=== PATIENT | male | born 1960 | race Caucasian/White ===

== ENCOUNTER 2020-01-09 23:50 | Observation (INO) | payer MEDICAID ==
[~2020-01-09] VITALS: Ht 190.5 cm; Wt 81.4 kg
--- NOTE | 2020-01-09 23:56 | NUR ---
Pt is a transfer from [facility] for a non stemi. Pt reports he has been SOB for a few weeks with no relief. Pt reports that he did not have chest pain but felt it was difficult to perform more tasks. Pt on arrival is in good spirits and ambulating independantly. Pt reports that is AICD is being monitored at this time closely. Pt connected to monitors. Call light in reach. Pt is no on blood thinners at this time. Pt in room, fall preacautions in place. Pt was not transfered on any anticoagulants. Pt did not recieve aspirin. Will be given meds here. .048 troponin.
[2020-01-09] MEDS ORDERED: ASPIRIN 81 MG TABLET CHEW ONE (23:59)
--- NOTE | 2020-01-10 00:27 | NUR ---
PT PROVIDED WITH DINNER WITH ELEONORA MALIN. PT LAYING IN BED, MARIO.
[2020-01-10 00:40] LABS: BASOPHILS % (AUTO) 1 % (0-1); EOSINOPHILS % (AUTO) 3 % (1-7); LYMPHOCYTES % (AUTO) 9 % (22-44); MEAN CORPUSCULAR HEMOGLOBIN 30.3 pg (27.5-34.5); MEAN CORPUSCULAR HGB CONC 32.7 g/dL (33.2-36.2); MEAN PLATELET VOLUME 9.2 fL (7.4-10.4); MONOCYTES % (AUTO) 7 % (2-9); NEUTROPHILS % (AUTO) 81 % (42-75); PLATELET COUNT 272 x10^3/uL (130-400); RED BLOOD COUNT 4.09 x10^6/uL (4.38-5.82); RED CELL DISTRIBUTION WIDTH 17.5 % (9.4-14.8)
[2020-01-10 00:45] LABS: MD NO
[2020-01-10 00:46] LABS: ALBUMIN 3.2 g/dL (3.4-5.0); ANION GAP 8 mmol/L (5-15); CALCIUM 8.6 mg/dL (8.5-10.1); CHLORIDE 107 mmol/L (98-107)
[2020-01-10 00:52] LABS: ALANINE AMINOTRANSFERASE 57 U/L (12-78); ALKALINE PHOSPHATASE 127 U/L (45-117); BILIRUBIN,TOTAL 1.6 mg/dL (0.2-1.0); CREATININE 1.56 mg/dL (0.7-1.3); TOTAL PROTEIN 6.8 g/dL (6.4-8.2); TROPONIN I 0.043 ng/mL (0.000-0.045)
[2020-01-10 01:00] LABS: INTERNATIONAL NORMALIZED RATIO 1.11 (0.93-1.1); PROTHROMBIN TIME 11.4 Seconds (9.6-11.5)
[2020-01-10] MEDS ORDERED: PLEASE ENTER ALLERGIES MC SCH (01:30)
[2020-01-10] MEDS ORDERED: FUROSEMIDE 40 MG/4 ML IV ONE (01:30)
[2020-01-10] MEDS ORDERED: APIX5TAB4 PO (01:54)
[2020-01-10] MEDS ORDERED: BUME1TAB21 PO (01:54)
[2020-01-10] MEDS ORDERED: CARV3.12 PO (01:57)
[2020-01-10] MEDS ORDERED: ASPI-515 PO (01:57)
[2020-01-10] MEDS ORDERED: FAMO40TA61 PO (01:57)
[2020-01-10] MEDS ORDERED: POTA25TA PO (01:57)
--- NOTE | 2020-01-10 02:14 | NUR ---
Report given to ABNER Torre.
[2020-01-10] MEDS ORDERED: FUROSEMIDE 40 MG/4 ML ONE (02:23)
[2020-01-10] MEDS ORDERED: DOCUSATE 100 MG CAPSULE PO PRN (02:30)
[2020-01-10] MEDS ORDERED: NITROGLYCERIN 0.4 MG/SPRAY SL PRN (02:30)
[2020-01-10] MEDS ORDERED: GUAIFENESIN/DM 200-20MG, 10ML UDC PO PRN (02:30)
[2020-01-10 03:14] VITALS: BP 121/91
[2020-01-10] MEDS: APIXABAN MC SCH ×3 (04:00→14:54)
[2020-01-10 05:13] LABS: TROPONIN I 0.041 ng/mL (0.000-0.045)
[2020-01-10] MEDS: [UNRECOGNIZED DRUG - OTHER] MC SCH ×2 (05:30→13:30)
[2020-01-10 07:20] VITALS: BP 99/68
[2020-01-10] MEDS: GUAIFENESIN ER 600 MG TABLET PO SCH ×2 (08:43→20:24)
[2020-01-10] MEDS: CARVEDILOL 3.125 MG TABLET PO SCH ×2 (08:43→20:24)
[2020-01-10] MEDS ORDERED: BUMETANIDE 0.25 MG/ML, 4ML IV SCH (09:00)
[2020-01-10] MEDS ORDERED: ASPIRIN 81 MG TABLET EC PO SCH (09:00)
[2020-01-10] MEDS ORDERED: FAMOTIDINE 40 MG TABLET PO SCH (09:00)
[2020-01-10] MEDS ORDERED: BUMETANIDE 1 MG TABLET PO SCH (09:00)
[2020-01-10] MEDS ORDERED: K-LYTE 25 MEQ TABLET.EFF PO SCH (09:00)
[2020-01-10] MEDS ORDERED: APIXABAN 5 MG PO SCH (09:00)
[2020-01-10 13:28] VITALS: BP 118/87
[2020-01-10 14:52] LABS: FREE T4 (FREE THYROXINE) 1.1 ng/dL (0.76-1.46)
[2020-01-10 20:19] VITALS: BP 97/69
[2020-01-10] MEDS: APIXABAN 5 MG TABLET PO SCH (20:24)
[2020-01-10] MEDS: BUMETANIDE 1 MG TABLET PO SCH (20:24)
[2020-01-11 00:32] VITALS: BP 107/77
[2020-01-11 06:11] LABS: ANION GAP 5 mmol/L (5-15); CALCIUM 9.3 mg/dL (8.5-10.1); CHLORIDE 107 mmol/L (98-107); CREATININE 1.61 mg/dL (0.7-1.3)
[2020-01-11 07:43] VITALS: BP 114/91
[2020-01-11] MEDS: APIXABAN 5 MG TABLET PO SCH (08:27)
[2020-01-11] MEDS: CARVEDILOL 3.125 MG TABLET PO SCH (08:27)
[2020-01-11] MEDS: BUMETANIDE 1 MG TABLET PO SCH (08:27)
[2020-01-11] MEDS: GUAIFENESIN ER 600 MG TABLET PO SCH (08:27)
[2020-01-11] MEDS ORDERED: AMIODARONE 200 MG TABLET PO SCH (09:00)
[2020-01-11] MEDS ORDERED: FAMOTIDINE 20 MG TABLET PO SCH (09:00)
[2020-01-11] MEDS ORDERED: FLU VACC QS2020-21(6MOS UP)/PF 60MCG/0.5 ML SYR IM-VACC ONE (10:30)
[2020-01-11] MEDS ORDERED: BUME1TAB21 PO (11:15)
[2020-01-11 12:18] VITALS: BP 116/88
== END 2020-01-11 17:13 | disposition home or self-care (01) ==
LOC: ED 01-10 01:28 → EDIP 01-10 01:36 → INTOOBSV 01-10 01:36 → 5SO 01-10 03:22
PROVIDERS: ADMIT Family Medicine; ATTEND Hospitalist
DX: I50.9 Heart failure, unspecified (principal); J44.9 Chronic obstructive pulmonary disease, unspecified; I48.0 Paroxysmal atrial fibrillation; R06.00 Dyspnea, unspecified; R05 Cough; I42.8 Other cardiomyopathies; I08.1 Rheumatic disorders of both mitral and tricuspid valves; Z79.01 Long term (current) use of anticoagulants; Z87.891 Personal history of nicotine dependence; Z79.899 Other long term (current) drug therapy; Z85.21 Personal history of malignant neoplasm of larynx; Z23 Encounter for immunization
CPT/HCPCS: 36415; 71045; 80048; 80053; 83690; 83880; 84439; 84443; 84484; 85025; 85610; 85730; 90471; 90686; 93005; 93306; 96374; 99285; G0378; J1940